=== PATIENT | female | born 1955 | race Caucasian/White ===

== ENCOUNTER 2020-11-23 10:48 | Emergency (ER) | payer OTHER ==
[~2020-11-23] VITALS: Ht 157.5 cm; Wt 65.8 kg
[2020-11-23 10:55] VITALS: BP 148/77
[2020-11-23] MEDS ORDERED: VITAMIN E400 UNI4 PO (11:18)
[2020-11-23] MEDS ORDERED: LEVO-T75 MCG PO (11:18)
[2020-11-23] MEDS ORDERED: METFORMIN HCL500 M3 PO (11:18)
[2020-11-23] MEDS ORDERED: LOSARTAN-HCTZ1 EAC3 PO (11:18)
[2020-11-23] MEDS ORDERED: GABAPENTIN600 M1 PO (11:19)
[2020-11-23] MEDS ORDERED: OZEMPIC0.25 MG/0. SUBQ (11:19)
[2020-11-23] MEDS ORDERED: VISTARIL 25 MG25 M1 PO ×2 (11:33→11:52)
== END 2020-11-23 11:59 | disposition home or self-care (01) ==
LOC: M.ERS 10:48
DX: S81.811D Laceration without foreign body, right lower leg, subsequent encounter (principal); F41.9 Anxiety disorder, unspecified; I10 Essential (primary) hypertension; Z91.018 Allergy to other foods; Z88.0 Allergy status to penicillin; Z88.8 Allergy status to other drugs, medicaments and biological substances; Z91.013 Allergy to seafood; Z90.710 Acquired absence of both cervix and uterus; X58.XXXD Exposure to other specified factors, subsequent encounter